=== PATIENT | female | born 1945 | race Caucasian/White ===

== ENCOUNTER 2017-09-27 10:17 | Emergency (ER) | payer MEDICARE, OTHER ==
[~2017-09-27] VITALS: Ht 165.1 cm; Wt 77.0 kg
[~2017-09-27 10:17] MED LIST: AMBI12.5 PO; FURO1TAB93 PO; KLOR20TA6 PO; LANTUS2P SC; METO25 PO; NOVOLOGP2 SQ; PRIN5TAB PO; PROT40TA PO; ROSU10 PO; TAB-TAB PO; ULTR50TA PO; WARF5TAB PO
[2017-09-27 10:32] VITALS: BP 126/76; PULSE 66; RESP 17; TEMP 98.5; O2SAT 99
--- NOTE | 2017-09-27 12:00 | RADRPT ---
EXAM DATE/TIME: 09/27/2017 11:41 [place] COMPARISON: No previous studies available for comparison. INDICATIONS : Left ankle pain from twisting ankle. MEDICAL HISTORY : None. SURGICAL HISTORY : Total knee replacement, left. Total knee replacement, right. ENCOUNTER: Initial ACUITY: 3 days PAIN SCORE: 9/10 LOCATION: Left Foot FINDINGS: Three view exam was performed of the left ankle. The bony structures are in normal alignment. No ev idence of fracture, dislocation. Soft tissue swelling around the ankle. There is good alignment of t he mortise joint. There is a small heel spur. The ankle mortise is intact. No radiopaque foreign bod ies are seen. Bony mineralization is osteopenic. CONCLUSION: No acute fracture joint dislocation. Soft tissue swelling. Ramana Melgoza MD on September 27, 2017 at 11:57 Board Certified Radiologist. This report was verified electronically.
--- NOTE | 2017-09-27 12:26 | PD ---
HPI Chief Complaint: Injury Time Seen by Provider: 12:23 Travel History International Travel<30 days: No Contact w/Intl Traveler<30days: No Traveled to known affect area: No History of Present Illness HPI 72 YO F presents to the ED for evaluation of 8/10 LEFT ankle pain after "twisting while going down a small step" approximately 4 hours before arrival. She denies falling. She has been ambulatory on the leg since. She denies numbness, tingling, weakness, limitations to range of motion. She also complains of weeklong pain in the arch of the foot, worsened by ambulation. No treatment attempted at home. 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 She drove herself to the ED today. PFSH Past Medical History Hx Anticoagulant Therapy: Yes (coumadin) Arthritis: Yes Asthma: Yes (SEASONAL) Atrial Fibrillation: Yes Autoimmune Disease: No Blood Disorders: No Anxiety: No Depression: Yes (OCCASIONAL) Heart Rhythm Problems: Yes Cancer: No Cardiovascular Problems: Yes (MURMUR) High Cholesterol: Yes Chemotherapy: No Chest Pain: No Congestive Heart Failure: No COPD: No Cerebrovascular Accident: Yes Diabetes: Yes Diminished Hearing: No Endocrine: No GERD: Yes Glaucoma: No Genitourinary: No Headaches: No Hepatitis: No Hiatal Hernia: No Hypertension: Yes Immune Disorder: No Kidney Stones: No Musculoskeletal: Yes Neurologic: No Psychiatric: No Reproductive: No Respiratory: No Migraines: No Myocardial Infarction: No Radiation Therapy: No 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) Seizures: No Sickle Cell Disease: No Sleep Apnea: No Thyroid Disease: No Ulcer: No Menopausal: Yes Past Surgical History Abdominal Surgery: Yes (GASTRIC BYPASS) AICD: No Appendectomy: No Arteriovenous Shunt: No Cardiac Surgery: No Cholecystectomy: No Ear Surgery: No Endocrine Surgery: No Eye Surgery: No Genitourinary Surgery: Yes (GASTRIC BYPASS) Gynecologic Surgery: Yes (HYSTERECTOMY) Hysterectomy: Yes (a fib, htn) Insulin Pump: No Joint Replacement: Yes (BILAT KNEES) Oral Surgery: No Pacemaker: No Thoracic Surgery: No Other Surgery: Yes Social History Alcohol Use: Yes (OCC BEER) Tobacco Use: No Substance Use: No Allergies-Medications (Allergen,Severity, Reaction): Coded Allergies: diclofenac (Unverified Allergy, Severe, MEDICATION INTERACTION, 09/27/17) etodolac (Unverified Allergy, Severe, MEDICATION INTERACTION, 09/27/17) flurbiprofen (Unverified Allergy, Severe, MEDICATION INTERACTION, 09/27/17) ibuprofen (Unverified Allergy, Severe, MEDICATION INTERACTION, 09/27/17) indomethacin (Unverified Allergy, Severe, MEDICATION INTERACTION, 09/27/17) ketoprofen (Unverified Allergy, Severe, MEDICATION INTERACTION, 09/27/17) ketorolac (Unverified Allergy, Severe, MEDICATION INTERACTION, 09/27/17) naproxen (Unverified Allergy, Severe, MEDICATION INTERACTION, 09/27/17) oxaprozin (Unverified Allergy, Severe, MEDICATION INTERACTION, 09/27/17) Reported Meds & Prescriptions Reported Meds & Active Scripts Active Reported Tresiba Flextouch Pen Inj (Insulin Degludec Inj) 600 unit/3 ML Pen 25 Units SQ Lasix (Furosemide) 40 Mg Tab 40 Mg PO DIRECTED Ambien Cr (Zolpidem Tartrate) 12.5 Mg Tab 12.5 Mg PO HS Metoprolol Tartrate 25 mg (Metoprolol Tartrate) 25 Mg Tab 25 Mg PO BID Warfarin Sodium 5 Mg Tab 5 Mg PO DAILY Novolog (Insulin Aspart) 100 Units/Ml Inj 8 Units SQ BIDAC Sliding Scale As Directed. Multivitamin (Multivitamins) 1 Tab Tab 1 Tab PO DAILY Prinivil (Lisinopril) 5 Mg Tab 10 Mg PO DAILY Crestor (Rosuvastatin Calcium) 10 Mg Tab 10 Mg PO DAILY Review of Systems Except as stated in HPI: all other systems reviewed are Neg Physical Exam Narrative GENERAL: Well-nourished, well-developed white female in no acute distress. SKIN: Focused skin assessment warm/dry. HEAD: Normocephalic. EYES: No scleral icterus. No injection or drainage. NECK: Supple, trachea midline. No JVD or lymphadenopathy. CARDIOVASCULAR: Regular rate and rhythm without murmurs, gallops, or rubs. RESPIRATORY: Breath sounds equal bilaterally. No accessory muscle use. GASTROINTESTINAL: Abdomen soft, non-tender, nondistended. MUSCULOSKELETAL: No cyanosis. 2+ edema to the mid sarmiento bilaterally. Homans sign negative bilaterally. FOCUSED LEFT LOWER EXTREMITY EXAM: 2+ DP pulse. Squeeze test negative. No tenderness to palpation of the malleoli. No tenderness to palpation of the navicular base of the fifth. Patient is able to flex and extend the ankle and wiggle the toes. Neurovascularly intact to light touch distally. BACK: Nontender without obvious deformity. No CVA tenderness. Data Data Last Documented VS Vital Signs Date Time Temp Pulse Resp B/P (MAP) Pulse Ox O2 Delivery O2 Flow Rate FiO2 09/27/17 10:32 98.5 66 17 126/76 (93) 99 Orders Orders Ankle, Complete ([id number]) (09/27/17 ) Ed Discharge Order (09/27/17 12:37) MDM Medical Decision Making Medical Screen Exam Complete: Yes Emergency Medical Condition: Yes Differential Diagnosis fall versus ankle sprain versus fracture versus other Narrative Course 72 YO F presents to the ED for evaluation of 8/ LEFT ankle pain after "twisting while going down a small step" approximately 4 hours before arrival. She denies falling. She has been ambulatory on the leg since. She denies numbness, tingling, weakness, limitations to range of motion. She also complains of weeklong pain in the arch of the foot, worsened by ambulation. No treatment attempted at home. 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 Vitals reviewed. On exam the patient has edema to the mid sarmiento bilaterally. Homans sign negative bilaterally. No tenderness to palpation of the malleoli, base of the fifth, navicular. X-rays reveal no acute bony injury. This is ankle sprain. Patient was provided an Arya wrap, instructed to use RICE therapy, follow with the silver miner blasting this week. She is agreeable to the care plan. She is stable and discharged home. Diagnosis Primary Impression: Ankle sprain Qualified Codes: S93.402A - Sprain of unspecified ligament of left ankle, initial encounter Referrals: [facility] Additional Instructions: Rest, ice, elevate the extremity. Apply ice no longer than 10-15 minutes per hour a few times a day. Tylenol as directed on the label as needed for pain. Return to normal, gentle activity as tolerated. No running, jumping activities for the next few weeks. Follow up with silver miner blasting this week. Return to the ED for any urgent or emergent medical condition. Disposition: 01 DISCHARGE HOME Condition: Stable Dorothy Sterling Sep 27, 2017 12:26
[2017-09-27] MEDS ORDERED: INSU1INJ13 SQ (12:29)
== END 2017-09-27 13:22 | disposition home or self-care (01) ==
LOC: NEPK 10:17
DX: S93.402A Sprain of unspecified ligament of left ankle, initial encounter (principal); X50.9XXA Other and unspecified overexertion or strenuous movements or postures, initial encounter; I48.91 Unspecified atrial fibrillation; K21.9 Gastro-esophageal reflux disease without esophagitis; I12.9 Hypertensive chronic kidney disease with stage 1 through stage 4 chronic kidney disease, or unspecified chronic kidney disease; E11.22 Type 2 diabetes mellitus with diabetic chronic kidney disease; N18.9 Chronic kidney disease, unspecified; M19.90 Unspecified osteoarthritis, unspecified site; F32.9 Major depressive disorder, single episode, unspecified
CPT/HCPCS: 73610; 99283